=== PATIENT | female | born 1975 | race Hispanic/Latino ===

== ENCOUNTER → 2017-09-23 | Outpatient (CLI) | payer OTHER | END | disposition home or self-care (01) | LOC: RAH 08:18 | PROVIDERS: ATTEND Family Medicine | DX: Z12.31 Encounter for screening mammogram for malignant neoplasm of breast (principal) | CPT/HCPCS: 77067 ==

== ENCOUNTER → 2018-10-07 | Outpatient (CLI) | payer BC | END | disposition home or self-care (01) | LOC: RAH 12:07 | PROVIDERS: ATTEND Family Medicine | DX: N63.20 Unspecified lump in the left breast, unspecified quadrant (principal); R92.8 Other abnormal and inconclusive findings on diagnostic imaging of breast | CPT/HCPCS: 76641; 77066 ==

== ENCOUNTER → 2019-03-25 | Outpatient (CLI) | payer BC | END | disposition home or self-care (01) | LOC: RAH 11:15 | PROVIDERS: ATTEND Family Medicine | DX: N63.20 Unspecified lump in the left breast, unspecified quadrant (principal) | CPT/HCPCS: 76641 ==

== ENCOUNTER → 2019-10-27 | Outpatient (CLI) | payer OTHER, SELFPAY | END | disposition home or self-care (01) | LOC: RAH 11:09 | PROVIDERS: ATTEND Surgery | DX: N63.14 Unspecified lump in the right breast, lower inner quadrant (principal); N63.42 Unspecified lump in left breast, subareolar | CPT/HCPCS: 76641; 77066 ==

== ENCOUNTER 2022-03-30 20:45 | Emergency (ER) | payer OTHER | END 2022-03-30 21:31 | disposition left against medical advice (07) | LOC: EDH 20:45 | DX: Z53.21 Procedure and treatment not carried out due to patient leaving prior to being seen by health care provider (principal) ==